=== PATIENT | female | born 1995 | race African-American/Black ===

== ENCOUNTER 2019-03-11 13:23 | Inpatient (IN) ==
[2019-03-11] MEDS ORDERED: ZOFRAN IV ONE ×2 (13:56→16:41)
[2019-03-11 13:57] LABS: BASO# 0.01 X1000 (0.0-0.2); BASO% 0.4 % (0.0-0.8); HEMATOCRIT 38.7 % (37.0-47.0); HEMOGLOBIN 12.9 g/dL (12.0-16.0); LYMPH# 0.93 X1000 (1.2-3.4); LYMPH% 37.5 % (20.5-51.1); MCHC 33.3 g/dL (33-37); MCV 84.1 FL (81-99); MONO# 0.22 X1000 (0.11-0.59); MONO% 8.9 % (1.7-9.3); MPV 11.3 FL (7.4-10.4); NEUT# 1.32 X1000 (1.4-6.5); NEUT% 53.2 % (42.2-75.2); PLT 214 X1000 (130-400); RDW 14.1 % (11.5-14.5); WBC 2.48 X1000 (4.8-10.8)
[2019-03-11] MEDS ORDERED: NS 1,000 ML IV ONE ×2 (14:07→15:25)
[2019-03-11 14:11] LABS: AGAP 13; ALBUMIN 4.2 g/dL (3.5-5.0); ALKALINE PHOSPHATASE 81 U/L (32-104); BUN 10 mg/dL (8-22); CALCIUM 8.9 mg/dL (8.8-10.2); CHLORIDE 103 mmol/L (98-107); COSMO 277; CREATININE 0.8 mg/dL (0.5-0.9); ESTIMATED GFR > 60; GLUCOSE 164 mg/dL (70-104); GOT 26 U/L (10-30); GPT 19 U/L (10-36); LIPASE 19 U/L (13-60); POTASSIUM 3.8 mmol/L (3.5-5.1); SODIUM 137 mmol/L (136-145); TCO2 21 mmol/L (25-35); TOTAL PROTEIN 7.5 g/dL (6.3-8.3)
[2019-03-11 16:03] LABS: URINE SOURCE CLEAN CATCH
[2019-03-11 16:05] LABS: BILIRUBIN URINE NEGATIVE (NEGATIVE); BLOOD URINE MODERATE (NEGATIVE); COLOR YELLOW; GLUCOSE URINE NEGATIVE (NEGATIVE); KETONE URINE NEGATIVE (NEGATIVE); LEUKOCYTES URINE NEGATIVE (NEGATIVE); NITRITE URINE NEGATIVE (NEGATIVE); PROTEIN URINE 30 mg/dL (NEGATIVE); TURBIDITY URINE HAZY (CLEAR); UROBILINOGEN URINE NORMAL (NORMAL)
[2019-03-11 16:07] LABS: UR EPITHELIAL CELLS >10 /HPF (<10); URINE BACTERIA NEGATIVE /HPF; URINE RBC TNTC /HPF (<10); URINE WBC <10 /HPF (<10)
[2019-03-11 16:58] LABS: INR 1.03
[2019-03-11] MEDS ORDERED: ACETADOTE IV ONE ×2 (17:00)
[2019-03-11] MEDS ORDERED: D5W IV ONE ×2 (17:00)
--- NOTE | 2019-03-11 17:03 | PROVIDER DOCUMENTATION ---
This chart was entered by Natasha De Dios Scribe, acting as scribe for Niall Suero MD. HPI-Abdominal Pain/GI Problem - General Chief Complaint: Abdominal Pain Stated Complaint: VOMITTING / ABD PAIN Time Seen by Provider: 03/11/19 14:06 Source: patient, family Allergies/Adverse Reactions: Patient Allergies Allergy/AdvReac Type Severity Reaction Status Date / Time No Known Allergies Allergy Verified 02/17/19 21:30 Home Medications: Home Medication List Medication Instructions Recorded Confirmed Last Taken Type NK [No Home Medications] 02/17/19 02/17/19 Unknown History - History of Present Illness-ABD Nature of Presenting Problems: Pt is a 24 yobf with c/o of abdominal pain, v/d since yesterday. Pt states that she has v/d so many times she has lost count. Pt is lethargic, slow to respond and drowsy. Pt's family states she took a bunch of OTC pain relievers over the last 24 hours and the last time she vomited she threw up some blood. Pt is nontoxic in appearance and slow to respond to dr. Abdominal Pain Onset Location: reports: generalized abdomen Pain Radiation: reports: no radiation Quality of Pain: reports: aching Severity in ED: reports: mild Onset/Duration: reports: abrupt, 24 hours ago Timing: reports: still present, constant Activities at Onset: reports: light activity Associated Symptoms: reports: diarrhea, loss of appetite, malaise, nausea, vomiting, weakness. denies: constipation, shortness of breath, syncope Last BM: other (pt stated she has had diahrrea so much she does know how many times she has gone) Dark Stools Present?: reports: none noticed Rectal Bleeding: reports: none Rectal Pain: reports: none # of Vomiting Episodes: 5 Emesis Description: reports: blood-streaked Bruising or Bleeding Gums?: No Similar Symptoms Previously?: No Recently seen or treated by another doctor?: Yes (ED 02/17/2019) Review of Systems - Adult - REVIEW OF SYSTEMS - ADULT Constitutional: denies: chills, fever Eyes: reports: no symptoms reported Ears, Nose, Mouth & Throat: reports: no symptoms reported Cardiovascular: denies: chest pain, syncope Respiratory: denies: cough, shortness of breath Gastrointestinal: reports: abdominal pain, diarrhea, nausea, vomiting Genitourinary: reports: no symptoms reported Musculoskeletal: reports: no symptoms reported Integumentary: reports: no symptoms reported Neurological: denies: dizziness/vertigo, headache/migraines, syncope Psychiatric: reports: no symptoms reported Endocrine: reports: no symptoms reported Hematologic/Lymphatic: reports: no symptoms reported Allergic/Immunologic: reports: no symptoms reported All Other Systems: Reviewed and Negative Past History - Adult - PAST MEDICAL HISTORY-ADULT Review of Records: reports: Old Records Reviewed, Nursing Assessment Review, Medications Reviewed, Social history reviewed & non-contributory. Major Childhood Illnesses: reports: denies history Cardiovascular: reports: denies history Respiratory: reports: denies history Gastrointestinal: reports: denies history Obstetrical/Gynecological: reports: denies history Genitourinary: reports: denies history Musculoskeletal: reports: denies history Neurological: reports: denies history Psychiatric: reports: anxiety Endocrine/Immune: reports: anemia, Diabetes Other Conditions: reports: denies history - PRIOR SURGERIES/PROCEDURES Surgical/Procedure History: reports: none - PRIOR HOSPITALIZATIONS Prior Hospitalizations: reports: none - IMMUNIZATION STATUS Childhood Immunizations: See Nurse Assessment Flu Vaccine: See Nurse Assessment - FAMILY HISTORY Family History: reviewed, not pertinent - SOCIAL HISTORY Smoking: non-smoker Living Situation: family Physical Exam-General - PHYSICAL EXAM-ADULT Initial Vital Signs Reviewed: Yes - CONSTITUTIONAL General Appearance: appears well, no apparent distress, lethargic, slow to respond - EYES Eyes: PERRL/EOMI, pink conjunctivae - HEAD, EARS, NOSE, MOUTH & THROAT HENMT: normocephalic/atraumatic, moist mucous membranes, normal ENT inspection - NECK Neck: non-tender, full range of motion, supple, normal inspection - RESPIRATORY Respiratory: chest non-tender, lungs clear, normal breath sounds, no pleuratic chest pain, no respiratory distress, no accessory muscle use - CARDIOVASCULAR Cardiovascular: normal peripheral pulses, regular rate, rhythm, no edema, no gallop, no JVD, no murmur - GASTROINTESTINAL (ABDOMEN) Abdominal Exam: normal bowel sounds, soft, no organomegaly - MUSCULOSKELETAL Back Exam: normal inspection, no CVA tenderness, no vertebral tenderness Extremity: normal range of motion, non-tender, normal gait, normal inspection, no pedal edema, no calf tenderness - SKIN Integumentary: normal color, normal turgor, warm/dry - PSYCHIATRIC Psych/Mental Status: normal thought content, normal thought process, oriented x 3, depressed affect Progress - PLAN OF CARE/RESULTS Progress/Plan/Lab Results: Vital Signs - 8 hr 03/11/19 13:27 Temperature 97.8 F Pulse Rate 69 Respiratory Rate 18 Blood Pressure 113/79 O2 Sat by Pulse Oximetry 97 Laboratory Results - last 24 hr 03/11/19 13:42 WBC 2.48 L RBC 4.60 Hgb 12.9 Hct 38.7 MCV 84.1 MCH 28.0 MCHC 33.3 RDW Std Deviation 14.1 Plt Count 214 MPV 11.3 H Immature Gran % (Auto) 0.0 Neut % (Auto) 53.2 Lymph % (Auto) 37.5 [place] % (Auto) 8.9 Eos % (Auto) 0.0 Baso % (Auto) 0.4 Immature Gran # (Auto) 0.00 Neut # (Auto) 1.32 L Lymph # (Auto) 0.93 L [place] # (Auto) 0.22 Eos # (Auto) 0.00 Baso # (Auto) 0.01 Orders Category Date Time Status AMYLASE [CHEM] Stat Lab 03/11/19 13:42 Received CBC WITH DIFF [HEME] Stat Lab 03/11/19 13:42 Completed COMPREHENSIVE METABOLIC PANEL [CHEM] Stat Lab 03/11/19 13:42 Received LIPASE [CHEM] Stat Lab 03/11/19 13:42 Received URINALYSIS W/POSS RFLX CULT [URINALYSIS] Stat Lab 03/11/19 13:34 Uncollected Ondansetron [Zofran] Med 03/11/19 13:56 Discontinued 4 mg IV NOW ONE Result Diagrams: 03/11/19 13:42 03/11/19 13:42 - REASSESSMENT Reassessment #1 Time Reassessed: 15:25 Status: unchanged Reassessment Comment: at bedside discussing POC - CONSULTS/PCP/HOSPITALIST Notification #1 *Consult/PCP/Hospitalist*: Poison Control Time Discussed: 16:27 Reason/Comments: acetaminophen poisoning protocol and treatment Consult Disposition: other #2 Consult: Dr Cardona Time Discussed: 16:59 Reason/Comments: discussing POC Departure - Departure Date of Disposition Decision: 03/11/19 Time of Disposition Decision: 17:00 DIAGNOSIS: Overdose by acetaminophen Disposition: HOME 01 Certified Medical Emergency: Emergent Condition: Stable Referrals and Follow-Ups: Fredi Brennan MD [Primary Care Provider] - - Critical Care Note This patient required my direct & personal management of CC.: No Attestation - Physician/ STEPAN Attestation Patient care was provided by Advanced Practice Provider:: No The physician spent face to face time with patient:: Yes Advanced Practice Provider documentation review:: Supervising physician onsite and consulted in the evaluation and care of this patient. The physician did have a face to face encounter with the patient. This chart was documented by the indicated scribe, (Natasha De Dios, Scriblaura) and accurately reflects the services I performed and decisions made by me, Niall Suero MD, as attested by the provider's signature.
[2019-03-11] MEDS ORDERED: PHENERGAN IV ONE (17:36)
[2019-03-11] MEDS ORDERED: PHENERGAN IV PRN (17:36)
[2019-03-11] MEDS ORDERED: SODIUM CHLORIDE 0.9% INJ ONE (17:36)
[2019-03-11] MEDS ORDERED: SODIUM CHLORIDE 0.9% INJ PRN (17:36)
[2019-03-11] MEDS ORDERED: ZOFRAN IV PRN (17:39)
[2019-03-11] MEDS: NS 1,000 ML IV SCH (18:37)
[2019-03-11 20:44] LABS: UR AMPHETAMINES QUAL NONE DETECTED (NONE DETECT); UR BARBITUATES QUAL NONE DETECTED (NONE DETECT); UR BENZODIAZEPIN QUAL PRESUMPTIVE POSITIVE (NONE DETECT); UR CANNABINOIDS QUAL PRESUMPTIVE POSITIVE (NONE DETECT); UR COCAINE QUAL NONE DETECTED (NONE DETECT); UR METHADONE QUAL NONE DETECTED (NONE DETECT); UR METHAMPHETAMINE QUAL NONE DETECTED (NONE DETECT); UR OPIATES QUAL NONE DETECTED (NONE DETECT); UR OXYCODONE QUAL NONE DETECTED (NONE DETECT); UR PCP QUAL NONE DETECTED (NONE DETECT); UR PROPOXYPHENE QUAL NONE DETECTED (NONE DETECT); UR TCA QUAL NONE DETECTED (NONE DETECT)
[2019-03-12] MEDS ORDERED: ACETADOTE IV ONE ×2 (04:00→23:47)
[2019-03-12] MEDS ORDERED: D5W IV ONE ×2 (04:00→23:47)
[2019-03-12 06:41] LABS: HEMATOCRIT 37.3 % (37.0-47.0); HEMOGLOBIN 12.3 g/dL (12.0-16.0); MCH 28.5 PG (27-31); MCV 86.3 FL (81-99); MPV 12.1 FL (7.4-10.4); RBC 4.32 XMIL (4.2-5.4); RDW 14.3 % (11.5-14.5); WBC 5.65 X1000 (4.8-10.8)
[2019-03-12 06:45] LABS: ACETAMINOPHEN 2.3 ug/mL (10-30); AGAP 12; ALB/GLOB RATIO 1.1; ALBUMIN 3.2 g/dL (3.5-5.0); ALKALINE PHOSPHATASE 68 U/L (32-104); BUN 6 mg/dL (8-22); CALCIUM 8.1 mg/dL (8.8-10.2); CHLORIDE 108 mmol/L (98-107); COSMO 274; CREATININE 0.8 mg/dL (0.5-0.9); ESTIMATED GFR > 60; GLUCOSE 105 mg/dL (70-104); GOT 45 U/L (10-30); GPT 48 U/L (10-36); POTASSIUM 3.2 mmol/L (3.5-5.1); SODIUM 138 mmol/L (136-145); TCO2 18 mmol/L (25-35); TOTAL BILIRUBIN 0.78 mg/dL (0.20-1.00)
[2019-03-12] MEDS: NS 1,000 ML IV SCH ×4 (09:13→21:53)
[2019-03-12] MEDS ORDERED: SODIUM CHLORIDE 0.9% INJ SCH (13:30)
[2019-03-12] MEDS: PROTONIX IV SCH (13:53)
--- NOTE | 2019-03-12 13:58 | PROGRESS NOTE ---
DATE: 03/12/2019 SUBJECTIVE: Patient has no complaints. She is still not feeling very well. OBJECTIVE: Blood pressure 92/52, heart rate 62, respiratory rate 16, temperature 98.1 degrees, 100% on room air. Cardiovascular: Regular rate and rhythm. Pulmonary: Bilateral breath sounds clear to auscultation. GI: Soft, nontender, nondistended. Bowel sounds were positive. PROBLEM LIST: Acetaminophen overdose, unintentional. She was doing it for pain control but not suicidality. She was doing it because of pain control for her period cramps/menstrual cramps. LABORATORY DATA: Her initial Tylenol level was 73. Her repeat level is 2.3. She is being and admitted for the treatment. She has a little bit of a non-gap acidosis. She is getting Acetadote and we will monitor her liver enzymes which have increased a bit in the last 24 hours or at least overnight so we will continue to monitor. DISPOSITION: Pending clinical status. We will continue to follow. cc: Mansoor Graham MD
--- NOTE | 2019-03-12 18:47 | HISTORY AND PHYSICAL ---
CHIEF COMPLAINT: Abdominal pain. HISTORY OF PRESENT ILLNESS: Patient is a 24-year-old female who presented to the hospital with abdominal pain, nausea and vomiting, notes this has been going on for 2 days or so. She has had several episodes of vomiting, so many she lost count. She states that she has been taking Tylenol to try to help with the pain and thinking that each time she threw up she had thrown up all the Tylenol so she took more. ALLERGIES: No known drug allergies. MEDICATIONS: No current medications. REVIEW OF SYSTEMS: Positive nausea, vomiting, abdominal pain. She has had frequent retching and dry heaving. Denies any hematemesis, hematochezia, melena. Denies diarrhea, constipation. Denies dysuria and frequency. She has had a greatly decreased oral intake over the past few days. Denies any chest pain, palpitation. Denies shortness of breath, fevers, chills. Denies dysuria, frequency, urgency. Denies skin rashes, weight loss or weight gain. PAST MEDICAL HISTORY: Significant only for anemia, anxiety, and diabetes. She currently is not taking any medications for such. FAMILY HISTORY: Noncontributory. SOCIAL HISTORY: She does not smoke or drink. Denies any illicit substance use. PHYSICAL EXAMINATION: VITAL SIGNS: Reviewed. Temperature 97.8 degrees, pulse 69, respiratory rate 18, BP 113/79, saturation 97% on room air. GENERAL: Patient is pleasant. She is in no current respiratory distress, although she is moderately ill due to frequent retching and spitting into the garbage can. HEENT: Normocephalic. NECK: Supple. CARDIOVASCULAR: Regular rate. No murmurs. CHEST: Clear, nonlabored. ABDOMEN: Soft. Tender. Hyperactive bowel sounds. EXTREMITIES: Moves all extremities, no edema. NEUROLOGIC: No changes. ASSESSMENT: 1. Accidental acetaminophen overdose. 2. Diabetes with hyperglycemia. Blood sugar 164. 1. Chronic anxiety. 2. Abdominal pain. 3. Leukopenia. White count is 2.48. PLAN: We are going to admit patient to the hospital, place her on protocol per Poison Control for her Tylenol overdose, and we will follow her labs per Poison Control. We will use Zofran and Phenergan for her nausea. Place her on sliding scale insulin, IV fluids. cc: MD Mansoor Harris MD
[2019-03-12 21:46] LABS: INR 1.22; PROTIME 15.6 Seconds (11.0-16.0)
[2019-03-12 22:29] LABS: AGAP 12; ALB/GLOB RATIO 1.6; ALBUMIN 3.8 g/dL (3.5-5.0); ALKALINE PHOSPHATASE 77 U/L (32-104); BUN 3 mg/dL (8-22); CALCIUM 8.9 mg/dL (8.8-10.2); CHLORIDE 108 mmol/L (98-107); COSMO 276; CREATININE 0.9 mg/dL (0.5-0.9); ESTIMATED GFR > 60; GLUCOSE 96 mg/dL (70-104); GOT 284 U/L (10-30); GPT 248 U/L (10-36); SODIUM 140 mmol/L (136-145); TCO2 20 mmol/L (25-35); TOTAL BILIRUBIN 0.79 mg/dL (0.20-1.00); TOTAL PROTEIN 6.2 g/dL (6.3-8.3)
[2019-03-12 23:03] LABS: ACETAMINOPHEN 1.5 ug/mL (10-30)
[2019-03-13] MEDS: NS 1,000 ML IV SCH ×4 (03:45→21:15)
[2019-03-13 06:09] LABS: BASO# 0.02 X1000 (0.0-0.2); BASO% 0.5 % (0.0-0.8); EOS# 0.05 X1000 (0.0-0.7); EOS% 1.3 % (0.0-10.0); HEMATOCRIT 36.8 % (37.0-47.0); LYMPH% 36.3 % (20.5-51.1); MCHC 32.6 g/dL (33-37); MCV 85.8 FL (81-99); MONO# 0.43 X1000 (0.11-0.59); MONO% 11.1 % (1.7-9.3); MPV 11.6 FL (7.4-10.4); NEUT# 1.96 X1000 (1.4-6.5); NEUT% 50.8 % (42.2-75.2); PLT 200 X1000 (130-400); RBC 4.29 XMIL (4.2-5.4); RDW 14.5 % (11.5-14.5); WBC 3.86 X1000 (4.8-10.8)
[2019-03-13 06:41] LABS: AGAP 10; ALB/GLOB RATIO 1.2; ALBUMIN 3.3 g/dL (3.5-5.0); ALKALINE PHOSPHATASE 67 U/L (32-104); BUN 3 mg/dL (8-22); CALCIUM 8.1 mg/dL (8.8-10.2); CHLORIDE 109 mmol/L (98-107); COSMO 280; CREATININE 0.9 mg/dL (0.5-0.9); ESTIMATED GFR > 60; GLUCOSE 103 mg/dL (70-104); GOT 394 U/L (10-30); GPT 380 U/L (10-36); POTASSIUM 3.6 mmol/L (3.5-5.1); SODIUM 142 mmol/L (136-145); TCO2 23 mmol/L (25-35); TOTAL BILIRUBIN 0.61 mg/dL (0.20-1.00); TOTAL PROTEIN 6.1 g/dL (6.3-8.3)
--- NOTE | 2019-03-13 12:22 | Diag Imaging Result Doc PS360 ---
US GB < RUQ (LIMITED) - 03/13/2019 INDICATION: elevated liver enzymes TECHNIQUE: COMPARISON: None FINDINGS: Liver, gallbladder, pancreas, and right kidney are normal. Common bile duct measures 4 mm. Aorta, IVC, and main portal vein are patent. IMPRESSION: Negative exam. Electronically signed by Ignacio Cruz 03/13/2019 12:19 PM
[2019-03-13] MEDS: PROTONIX IV SCH (12:48)
[2019-03-13 14:40] LABS: INR 1.2; PROTIME 15.4 Seconds (11.0-16.0)
[2019-03-13] MEDS ORDERED: MORPHINE IV PRN (15:19)
[2019-03-13] MEDS ORDERED: G.I. COCKTAIL PO ONE (15:20)
[2019-03-13] MEDS ORDERED: ACETADOTE IV ONE (15:55)
[2019-03-13] MEDS ORDERED: D5W IV ONE (15:55)
[2019-03-13 16:33] LABS: INR 1.23; PROTIME 15.6 Seconds (11.0-16.0)
[2019-03-13 17:20] LABS: ACETAMINOPHEN < 1.2 ug/mL (10-30); AGAP 14; ALB/GLOB RATIO 1.4; ALBUMIN 3.4 g/dL (3.5-5.0); ALKALINE PHOSPHATASE 72 U/L (32-104); BUN 2 mg/dL (8-22); CALCIUM 8.5 mg/dL (8.8-10.2); CHLORIDE 104 mmol/L (98-107); COSMO 277; CREATININE 0.8 mg/dL (0.5-0.9); ESTIMATED GFR > 60; GLUCOSE 120 mg/dL (70-104); GOT 365 U/L (10-30); GPT 490 U/L (10-36); POTASSIUM 3.5 mmol/L (3.5-5.1); SODIUM 140 mmol/L (136-145); TCO2 22 mmol/L (25-35); TOTAL BILIRUBIN 0.63 mg/dL (0.20-1.00); TOTAL PROTEIN 5.8 g/dL (6.3-8.3)
[2019-03-14 06:19] LABS: AGAP 9; ALB/GLOB RATIO 1.1; ALBUMIN 3.1 g/dL (3.5-5.0); ALKALINE PHOSPHATASE 67 U/L (32-104); BUN 2 mg/dL (8-22); CALCIUM 8.1 mg/dL (8.8-10.2); CHLORIDE 109 mmol/L (98-107); COSMO 278; CREATININE 0.7 mg/dL (0.5-0.9); ESTIMATED GFR > 60; GLUCOSE 102 mg/dL (70-104); GOT 176 U/L (10-30); GPT 377 U/L (10-36); POTASSIUM 3.2 mmol/L (3.5-5.1); SODIUM 141 mmol/L (136-145); TCO2 23 mmol/L (25-35); TOTAL BILIRUBIN 0.61 mg/dL (0.20-1.00); TOTAL PROTEIN 5.8 g/dL (6.3-8.3)
[2019-03-14] MEDS: NS 1,000 ML IV SCH ×3 (06:23→22:19)
[2019-03-14 07:59] LABS: HEMOGLOBIN A1C 5.2 % (4.8-6.0)
[2019-03-14] MEDS ORDERED: KLOR-CON PO ONE (10:26)
[2019-03-14] MEDS: LACTULOSE PO SCH ×2 (13:13→22:19)
[2019-03-14] MEDS: PROTONIX IV SCH (13:13)
[2019-03-14 14:45] LABS: BASO# 0.14 X1000 (0.0-0.2); BASO% 3.5 % (0.0-0.8); EOS% 2.5 % (0.0-10.0); HEMATOCRIT 36.6 % (37.0-47.0); HEMOGLOBIN 11.9 g/dL (12.0-16.0); IMM GRAN# 0.02 X1000 (0.0-0.04); IMM GRAN% 0.5 % (0.0-0.5); LYMPH# 2.04 X1000 (1.2-3.4); LYMPH% 51.3 % (20.5-51.1); MCH 28.2 PG (27-31); MCHC 32.5 g/dL (33-37); MCV 86.7 FL (81-99); MONO% 12.6 % (1.7-9.3); NEUT# 1.18 X1000 (1.4-6.5); NEUT% 29.6 % (42.2-75.2); PLT 198 X1000 (130-400); RBC 4.22 XMIL (4.2-5.4); RDW 14.6 % (11.5-14.5); WBC 3.98 X1000 (4.8-10.8)
[2019-03-14 14:51] LABS: INR 1.14; PROTIME 14.8 Seconds (11.0-16.0)
[2019-03-14 15:02] LABS: ACETAMINOPHEN < 1.2 ug/mL (10-30); ALB/GLOB RATIO 1.4; ALBUMIN 3.4 g/dL (3.5-5.0); ALKALINE PHOSPHATASE 71 U/L (32-104); GOT 121 U/L (10-30); GPT 342 U/L (10-36); PHOSPHORUS 2.2 mg/dL (2.7-4.5); TOTAL BILIRUBIN 0.54 mg/dL (0.20-1.00); TOTAL PROTEIN 5.9 g/dL (6.3-8.3)
[2019-03-14] MEDS ORDERED: D5W IV ONE (16:30)
[2019-03-14] MEDS ORDERED: ACETADOTE IV ONE (16:30)
[2019-03-14] MEDS ORDERED: SODIUM PHOSPHATE 40 MEQ in NS 250 ML IV ONE (17:05)
--- NOTE | 2019-03-14 20:05 | GASTROENTEROLOGY CONSULTATION ---
DATE: 03/14/2019 REASON FOR CONSULTATION: Elevated liver function tests, accidental acetaminophen overdose. HISTORY OF PRESENT ILLNESS: This is a 24-year-old female who came into the hospital with abdominal pain, nausea and vomiting for several days prior to admission. She states she had been taking Tylenol frequently for period pain and cramping. She started having episodes of vomiting and continued to take more Tylenol. She does not actually remember how many Tylenol tablets she did take. When she came in for evaluation she was found to be in overdose of acetaminophen. She had an admission Tylenol level of 72.9 on 03/11/2019. Today her acetaminophen level is less than 1.2. They did follow the poison control recommendations for Tylenol overdose. Patient continues to complain of some abdominal pain. She has also reported some constipation and states she has not had a bowel movement since admission. She was recently given lactulose for constipation and she states it made her nauseous. PAST MEDICAL HISTORY: Anemia, anxiety, diabetes. ALLERGIES: No known drug allergies. HOME MEDICATIONS: None reported except for patient recently taking Tylenol. SOCIAL HISTORY: No reported tobacco or alcohol use. She has a boyfriend. REVIEW OF SYSTEMS: Per history of present illness.Vital Signs: Temperature 98.5 degrees, pulse 84, respirations 16, blood pressure 97/50. General: Patient is awake and alert in no acute distress. She does report some current nausea and abdominal pain. She reports her pain level as an 8 on a scale of 1 to 10. Respiratory: Lung sounds essentially clear. Cardiovascular: Regular rate and rhythm. Abdomen: Soft. Some tenderness noted with palpation. Positive bowel sounds. Extremities: Mild lower extremity edema noted. LABORATORY: Hematology. WBC 3.98, hemoglobin 11.9, hematocrit 36.6, MCV 86.7, platelet 198,000. Coagulation. Pro time 14.8, INR 1.14. Chemistry. Sodium 138, potassium 3.2, chloride 108, CO2 18, BUN 6, creatinine 0.8, glucose 105, calcium 8.1, total bilirubin 0.61, AST 176, ALT 377, alkaline phosphatase 67. Ultrasound of the abdomen showed negative exam the liver, gallbladder, pancreas and right kidney were normal. Common bile duct measured 4 mm. ASSESSMENT AND PLAN: 1. Recent acetaminophen overdose. Acetaminophen level today is less than 1.2. 2. Elevated liver function tests are slowly improving. We will continue to follow. 3. Constipation. Patient has received lactulose. Continue current regimen. 4. Diabetes. Continue current management. 5. Abdominal pain, nausea, vomiting. Continue symptomatic treatment. Her liver function tests have improved we will continue to monitor. Continue current medications. Further plans will be made according to her progress. I have discussed this case with Dr. Simmons. Dictated by ADÁN Schafer for Dale Simmons MD cc: ADÁN Morrison MD Alexis R. Penot, MD
[2019-03-15 06:31] LABS: BASO# 0.01 X1000 (0.0-0.2); BASO% 0.2 % (0.0-0.8); EOS# 0.08 X1000 (0.0-0.7); EOS% 1.7 % (0.0-10.0); HEMATOCRIT 34.4 % (37.0-47.0); HEMOGLOBIN 11.2 g/dL (12.0-16.0); LYMPH# 2.32 X1000 (1.2-3.4); LYMPH% 50.3 % (20.5-51.1); MCH 28.5 PG (27-31); MCHC 32.6 g/dL (33-37); MCV 87.5 FL (81-99); MONO% 10.8 % (1.7-9.3); MPV 11.2 FL (7.4-10.4); PLT 192 X1000 (130-400); RBC 3.93 XMIL (4.2-5.4); RDW 14.7 % (11.5-14.5); WBC 4.61 X1000 (4.8-10.8)
[2019-03-15] MEDS: NS 1,000 ML IV SCH ×2 (06:37→13:31)
[2019-03-15 06:39] LABS: AGAP 8; ALB/GLOB RATIO 1.1; ALBUMIN 3.1 g/dL (3.5-5.0); ALKALINE PHOSPHATASE 66 U/L (32-104); BUN 2 mg/dL (8-22); CALCIUM 7.9 mg/dL (8.8-10.2); CHLORIDE 108 mmol/L (98-107); COSMO 275; CREATININE 0.7 mg/dL (0.5-0.9); ESTIMATED GFR > 60; GLUCOSE 93 mg/dL (70-104); GOT 60 U/L (10-30); GPT 249 U/L (10-36); POTASSIUM 3.3 mmol/L (3.5-5.1); SODIUM 140 mmol/L (136-145); TCO2 24 mmol/L (25-35); TOTAL BILIRUBIN 0.35 mg/dL (0.20-1.00); TOTAL PROTEIN 5.9 g/dL (6.3-8.3)
[2019-03-15] MEDS: LACTULOSE PO SCH (08:27)
[2019-03-15 09:23] LABS: ACETAMINOPHEN < 1.2 ug/mL (10-30); ALB/GLOB RATIO 1.2; ALKALINE PHOSPHATASE 67 U/L (32-104); GOT 49 U/L (10-30); GPT 231 U/L (10-36); INR 1.17; TOTAL BILIRUBIN 0.45 mg/dL (0.20-1.00); TOTAL PROTEIN 5.6 g/dL (6.3-8.3)
[2019-03-15 09:38] LABS: BASO# 0.05 X1000 (0.0-0.2); BASO% 0.9 % (0.0-0.8); EOS# 0.13 X1000 (0.0-0.7); EOS% 2.3 % (0.0-10.0); HEMATOCRIT 34.5 % (37.0-47.0); LYMPH# 2.66 X1000 (1.2-3.4); LYMPH% 46.3 % (20.5-51.1); MCH 27.6 PG (27-31); MCHC 31.9 g/dL (33-37); MCV 86.5 FL (81-99); MONO# 0.66 X1000 (0.11-0.59); MONO% 11.5 % (1.7-9.3); MPV 11.5 FL (7.4-10.4); NEUT# 2.25 X1000 (1.4-6.5); PLT 200 X1000 (130-400); RBC 3.99 XMIL (4.2-5.4); RDW 14.3 % (11.5-14.5); WBC 5.75 X1000 (4.8-10.8)
[2019-03-15 11:35] LABS: HEPATITIS PROFILE ACUTE SEE COMMENTS
[2019-03-15 11:53] VITALS: BP 104/69
[2019-03-15] MEDS: PROTONIX IV SCH (13:31)
--- NOTE | 2019-03-15 15:17 | DISCHARGE SUMMARY ---
ADMISSION DATE: 03/12/2019 DISCHARGE DATE: 03/15/2019 DISCHARGE DIAGNOSES: 1. Acetaminophen overdose. 2. Hepatic injury related to acetaminophen overdose. Rule out diabetes. She does not have diabetes. The patient is 24 years old. No medical problems. She came in with abdominal discomfort. She tends to have a lot of pain during menstruation, taking Tylenol probably 4 to 5 extra-strength a day, but her random Tylenol level when she came in was 72. This was not an intentional or suicidal overdose. She was placed on Acetadote per protocol. Her Tylenol level was undetectable by the but then she started developing increase in her liver enzymes to a peak of 365 and 490. Those have trended downward, down to 49 and 231. Day of discharge, she was felt stable for discharge. Had bowel movement. Tolerating p.o. Recommend follow-up labs in one week. No Tylenol. She will need follow up with Dr. Brennan. Avoid alcohol as well. cc: Mansoor Graham MD
== END 2019-03-15 15:21 | disposition home or self-care (01) | DRG 918 ==
LOC: P.ED 13:23 → SUATTDRO 22:16 → 2N 22:16
PROVIDERS: ADMIT Internal Medicine; ATTEND Internal Medicine